=== PATIENT | male | born 1955 | race Caucasian/White ===

== ENCOUNTER 2017-07-14 19:44 | Emergency (ER) | payer OTHER, MEDICARE ==
[~2017-07-14] VITALS: Ht 180.3 cm; Wt 144.6 kg
[~2017-07-14 19:44] MED LIST: AUGMENTIN500TAB PO; AUGMENTIN875TAB PO; BENADRYL25 M1 OR; DOXYCYCL HYC100 MG PO; DUONEB IN; EPIPEN0.3 MG IM; GABAPENTIN100 MG PO; GABAPENTIN300 MG PO; GLUCOPHAGE PO; INVOKANA PO; INVOKANA300 MG PO; JANUVIA100 MG PO; LEVEMIR FLEXPEN SC; LEVEMIR SC; LEVEMIR1000 UNITS SC; LIPITOR20 MG PO; LORTAB 7.57.5 MG/TAB PO; LOSARTAN POT25 MG PO; LOSARTAN POT50 MG PO; LYRICA50 MG PO; MEDDOSEPAK PO; NAPROSYN500 MG PO; NAPROXEN500 MG PO; NEBULIZE1; NEXIUM40 M1 PO; NO MEDS; NOVOLOG FLEXPEN SC; NOVOLOG100 IU/1 M SC; PERCOCET 5/325M1 TAB PO; PREDNISONE20 MG OR; PROAIR HFA IN; TORADOL OR; ULTRAM50 M1 PO; ULTRAM50 MG PO; VENTOLIN HF1 IN; VICODIN1 TA1 PO; VOLTAREN1 % EX; steriod cream
[2017-07-14 20:56] LABS: HEMATOCRIT 44.7 % (39.0-50.0); IMMATURE GRANULOCYTES 0.3 % (0.0-1.0); MEAN CORPUSCULAR HGB 28.2 pG CALC (26.0-32.0); MEAN CORPUSCULAR HGB CONC 33.6 g/L CALC (32.0-36.0); NEUT# 5.34 thou/uL (1.82-7.42); RED BLOOD COUNT 5.32 mill/uL (4.70-6.10); RED CELL DISTRI WIDTH 12.5 % (11.5-15.5)
[2017-07-14 21:15] LABS: ALBUMIN 3.9 g/dL (3.2-5.0); ALKALINE PHOSPHATASE 111 u/l (38-126); ANION GAP 16 (6-22 (CALC)); BILIRUBIN, TOTAL 0.6 mg/dL (0.0-1.4); BUN 16 mg/dL (8-23); BUN/CREATININE RATIO 22 (12-20 (CALC)); CALCIUM 9.2 mg/dL (8.4-10.2); CARBON DIOXIDE 27 mmol/l (22-30); CHLORIDE 101 mmol/l (95-108); CREATININE 0.7 mg/dL (0.7-1.3); GFR > 60 ML/MIN (>=60 (CALC)); GFR FOR AFR.AMER. > 60 ML/MIN (>=60 (CALC)); GLUCOSE 231 mg/dL (82-115); POTASSIUM 4.4 mmol/l (3.5-5.1); SGOT/AST 16 u/l (19-48); SGPT/ALT 28 u/l (11-66); SODIUM 139 mmol/l (137-146); TOTAL PROTEIN 6.8 g/dL (6.3-8.2)
[2017-07-14] MEDS ORDERED: AMOX/K CLAV875 M1 PO (21:56)
[2017-07-14] MEDS ORDERED: CIPROFLOXACN500 MG PO (21:56)
[2017-07-14 22:20] VITALS: BP 177/79
== END 2017-07-14 22:20 | disposition home or self-care (01) | DRG 603 ==
LOC: ED 19:44
PROVIDERS: Emergency Medicine
DX: L03.116 Cellulitis of left lower limb (principal); S81.802A Unspecified open wound, left lower leg, initial encounter; M79.605 Pain in left leg; W01.118A Fall on same level from slipping, tripping and stumbling with subsequent striking against other sharp object, initial encounter; Y92.028 Other place in mobile home as the place of occurrence of the external cause

== ENCOUNTER 2018-06-28 12:45 | Emergency (ER) | payer OTHER, MEDICARE ==
[~2018-06-28] VITALS: Ht 180.3 cm; Wt 136.0 kg
[~2018-06-28 12:45] MED LIST changes: +AMOX/K CLAV875 M1 PO; +CIPROFLOXACN500 MG PO
[2018-06-28 14:09] VITALS: BP 134/74
[2018-06-28] MEDS ORDERED: KEFLEX500 M1 PO (14:22)
== END 2018-06-28 14:29 | disposition home or self-care (01) | DRG 605 ==
LOC: ED 12:45
DX: S60.222A Contusion of left hand, initial encounter (principal); S60.221A Contusion of right hand, initial encounter; I10 Essential (primary) hypertension; E78.5 Hyperlipidemia, unspecified; E11.9 Type 2 diabetes mellitus without complications; M79.7 Fibromyalgia; M19.90 Unspecified osteoarthritis, unspecified site; J45.909 Unspecified asthma, uncomplicated; W31.89XA Contact with other specified machinery, initial encounter; Y93.89 Activity, other specified; Y92.007 Garden or yard of unspecified non-institutional (private) residence as the place of occurrence of the external cause

== ENCOUNTER 2020-05-22 10:04 | Emergency (ER) | payer OTHER, MEDICARE ==
[~2020-05-22] VITALS: Ht 180.3 cm; Wt 152.3 kg
[~2020-05-22 10:04] MED LIST changes: +KEFLEX500 M1 PO
[2020-05-22 10:38] LABS: HEMOGLOBIN 15.1 g/dl (14.0-18.0); IMMATURE GRANULOCYTES 0.3 % (0.0-5.0); MEAN CELL VOLUME 82.2 fL CALC (80.0-100.0); MEAN CORPUSCULAR HGB 25.9 pG CALC (26.0-32.0); MEAN CORPUSCULAR HGB CONC 31.5 g/dL CAL (32.0-36.0); NEUT# 5.76 thou/uL (1.82-7.42); RED BLOOD COUNT 5.84 mill/uL (4.70-6.10); RED CELL DISTRI WIDTH 13.8 % (11.5-15.5)
[2020-05-22] MEDS ORDERED: NOVOLIN N100 UNIT/1 (10:48)
[2020-05-22] MEDS ORDERED: NOVOLIN R RELION (10:49)
[2020-05-22] MEDS ORDERED: LIPITOR40 M1 PO (10:50)
[2020-05-22 10:54] LABS: ALBUMIN 4.1 g/dL (3.2-5.0); ALKALINE PHOSPHATASE 124 u/l (38-126); ANION GAP 13 (6-22 (CALC)); BILIRUBIN, TOTAL 0.8 mg/dL (0.0-1.4); BUN 19 mg/dL (8-23); BUN/CREATININE RATIO 21 (12-20 (CALC)); CARBON DIOXIDE 28 mmol/l (22-30); CHLORIDE 100 mmol/l (95-108); CREATININE 0.9 mg/dL (0.7-1.3); GFR > 60 ML/MIN (>=60 (CALC)); GFR FOR AFR.AMER. > 60 ML/MIN (>=60 (CALC)); POTASSIUM 4.7 mmol/l (3.5-5.1); SGOT/AST 20 u/l (19-48); SODIUM 136 mmol/l (137-146); TOTAL PROTEIN 7.1 g/dL (6.3-8.2)
[2020-05-22] MEDS ORDERED: PREDNISONE50 MG PO (11:55)
[2020-05-22] MEDS ORDERED: EPIPEN 2-P0.3 MG/0.3 IM (11:55)
[2020-05-22] MEDS ORDERED: CEPHALEXIN500 M1 PO (13:05)
[2020-05-22 13:21] VITALS: BP 124/93
[2020-05-22] MEDS ORDERED: BENADRYL25 M1 PO (13:22)
== END 2020-05-22 13:23 | disposition left against medical advice (07) | DRG 918 ==
LOC: ED 10:04
PROVIDERS: Family Medicine
DX: T63.461A Toxic effect of venom of wasps, accidental (unintentional), initial encounter (principal); T78.2XXA Anaphylactic shock, unspecified, initial encounter; I10 Essential (primary) hypertension; E11.9 Type 2 diabetes mellitus without complications; J45.909 Unspecified asthma, uncomplicated; Z79.4 Long term (current) use of insulin; Z20.828 Contact with and (suspected) exposure to other viral communicable diseases
CPT/HCPCS: J0171

== ENCOUNTER 2020-12-21 | Emergency (ER) | payer OTHER, MEDICARE ==
[~2020-12-21] MED LIST changes: +BENADRYL25 M1 PO; +CEPHALEXIN500 M1 PO; +EPIPEN 2-P0.3 MG/0.3 IM; +LIPITOR40 M1 PO; +NOVOLIN N100 UNIT/1; +NOVOLIN R RELION; +PREDNISONE50 MG PO
[2020-12-21 12:45] LABS: HEMOGLOBIN 15.6 g/dl (14.0-18.0); IMMATURE GRANULOCYTES 0.5 % (0.0-5.0); MEAN CELL VOLUME 84.5 fL CALC (80.0-100.0); MEAN CORPUSCULAR HGB 27.5 pG CALC (26.0-32.0); MEAN CORPUSCULAR HGB CONC 32.5 g/dL CAL (32.0-36.0); NEUT# 8.45 thou/uL (1.82-7.42); RED BLOOD COUNT 5.68 mill/uL (4.70-6.10); RED CELL DISTRI WIDTH 13.8 % (11.5-15.5)
[2020-12-21 13:02] LABS: ALBUMIN 4.3 g/dL (3.2-5.0); ALKALINE PHOSPHATASE 131 u/l (38-126); ANION GAP 11 (6-22 (CALC)); BILIRUBIN, TOTAL 0.8 mg/dL (0.0-1.4); BUN 16 mg/dL (8-23); BUN/CREATININE RATIO 20 (12-20 (CALC)); CARBON DIOXIDE 31 mmol/l (22-30); CHLORIDE 98 mmol/l (95-108); CREATININE 0.8 mg/dL (0.7-1.3); GFR > 60 ML/MIN (>=60 (CALC)); GFR FOR AFR.AMER. > 60 ML/MIN (>=60 (CALC)); LIPASE 146 u/l (23-300); SGOT/AST 24 u/l (19-48); SODIUM 136 mmol/l (137-146); TOTAL PROTEIN 7.9 g/dL (6.3-8.2)
[2020-12-21 13:04] LABS: ACT PARTIAL THROMBO TIME 25.2 SECONDS (20.0-32.5); PROTHROMBIN TIME 10.6 SECONDS (9.0-12.5)
== END 2020-12-21 14:35 | disposition left against medical advice (07) | DRG 310 ==
DX: I47.1 Supraventricular tachycardia (principal); I10 Essential (primary) hypertension; E78.5 Hyperlipidemia, unspecified; E11.9 Type 2 diabetes mellitus without complications; J45.909 Unspecified asthma, uncomplicated; Z79.4 Long term (current) use of insulin; Z91.19 Patient's noncompliance with other medical treatment and regimen

== ENCOUNTER 2021-04-27 15:17 | Emergency (ER) | payer OTHER, MEDICARE ==
[~2021-04-27] VITALS: Ht 180.3 cm; Wt 159.0 kg
[2021-04-27 16:00] VITALS: BP 148/88
[2021-04-27 16:31] LABS: IMMATURE GRANULOCYTES 0.3 % (0.0-5.0); MEAN CORPUSCULAR HGB 28.2 pG CALC (26.0-32.0); MEAN CORPUSCULAR HGB CONC 32.8 g/dL CAL (32.0-36.0); NEUT# 9.7 thou/uL (1.82-7.42); RED BLOOD COUNT 4.08 mill/uL (4.70-6.10); RED CELL DISTRI WIDTH 12.9 % (11.5-15.5)
[2021-04-27 17:08] LABS: HEMATOCRIT 35.1 % (39.0-50.0); HEMOGLOBIN 11.5 g/dl (14.0-18.0)
[2021-04-27 17:13] LABS: ALBUMIN 3.6 g/dL (3.2-5.0); BILIRUBIN, TOTAL 0.8 mg/dL (0.0-1.4); CREATININE 1.7 mg/dL (0.7-1.3); POTASSIUM 4.4 mmol/l (3.5-5.1); TOTAL PROTEIN 7.1 g/dL (6.3-8.2)
[2021-04-27 17:14] LABS: URINE BILIRUBIN - DIPSTICK NEGATIVE (NEGATIVE); URINE BLOOD DIPSTICK NEGATIVE (NEGATIVE); URINE COLOR YELLOW; URINE GLUCOSE - DIPSTICK NEGATIVE (NEGATIVE); URINE KETONE NEGATIVE (NEGATIVE); URINE LEUK ESTERASE NEGATIVE (NEGATIVE); URINE PROTEIN - DIPSTICK NEGATIVE (NEG-TRACE); URINE SPECIFIC GRAVITY 1.015; URINE UROBILINOGEN - DIPSTICK 0.2 E.U./dL (0.2)
[2021-04-27 17:20] LABS: URINE NITRITE - DIPSTICK NEGATIVE (Negative)
== END 2021-04-27 18:00 | disposition home or self-care (01) | DRG 700 ==
LOC: ED 15:17
PROVIDERS: Emergency Medicine
DX: N28.9 Disorder of kidney and ureter, unspecified (principal); I10 Essential (primary) hypertension; E78.5 Hyperlipidemia, unspecified; E11.9 Type 2 diabetes mellitus without complications; J45.909 Unspecified asthma, uncomplicated; K90.0 Celiac disease; M79.7 Fibromyalgia; M19.90 Unspecified osteoarthritis, unspecified site; Z79.4 Long term (current) use of insulin; Z53.20 Procedure and treatment not carried out because of patient's decision for unspecified reasons

== ENCOUNTER 2021-10-04 12:40 | Emergency (ER) | payer OTHER, MEDICARE ==
[~2021-10-04] VITALS: Ht 180.3 cm; Wt 163.0 kg
[~2021-10-04 12:40] MED LIST changes: +COZAAR50 MG PO; -LIPITOR40 M1 PO; +LIPITOR80 M1 PO
[2021-10-04 13:36] LABS: HEMOGLOBIN 13.1 g/dl (14.0-18.0); IMMATURE GRANULOCYTES 0.4 % (0.0-5.0); MEAN CELL VOLUME 84.6 fL CALC (80.0-100.0); MEAN CORPUSCULAR HGB 26.3 pG CALC (26.0-32.0); NEUT# 20.91 thou/uL (1.82-7.42); RED BLOOD COUNT 4.99 mill/uL (4.70-6.10); RED CELL DISTRI WIDTH 14.7 % (11.5-15.5)
[2021-10-04 13:50] LABS: ALBUMIN 3.6 g/dL (3.2-5.0); CREATININE 2.3 mg/dL (0.7-1.3); POTASSIUM 4.4 mmol/l (3.5-5.1); TOTAL PROTEIN 7.2 g/dL (6.3-8.2)
[2021-10-04 13:51] LABS: BILIRUBIN, TOTAL 1.3 mg/dL (0.0-1.4)
[2021-10-04 13:58] LABS: HEMATOCRIT 42.2 % (39.0-50.0)
[2021-10-04] MEDS ORDERED: VIAGRA50 MG PO (14:40)
[2021-10-04] MEDS ORDERED: TOUJEO SOL300 UNIT/M SC (14:40)
[2021-10-04] MEDS ORDERED: CIALIS5 MG PO (14:41)
[2021-10-04] MEDS ORDERED: METOPROL TAR25 MG PO (14:41)
[2021-10-04] MEDS ORDERED: ELIQUIS5 MG PO (14:42)
[2021-10-04] MEDS ORDERED: CYMBALTA60 MG PO (14:43)
[2021-10-04] MEDS ORDERED: TAMSULOSIN0.4 MG PO (14:50)
[2021-10-04] MEDS ORDERED: HUMALOG KW100 UNIT/M SC (15:16)
[2021-10-04 17:42] LABS: URINE BILIRUBIN - DIPSTICK NEGATIVE (NEGATIVE); URINE BLOOD DIPSTICK LARGE (NEGATIVE); URINE COLOR YELLOW; URINE GLUCOSE - DIPSTICK NEGATIVE (NEGATIVE); URINE KETONE NEGATIVE (NEGATIVE); URINE PROTEIN - DIPSTICK 30 mg/dL (NEG-TRACE); URINE UROBILINOGEN - DIPSTICK 0.2 E.U./dL (0.2)
[2021-10-04 17:45] VITALS: BP 161/89
[2021-10-04 17:45] LABS: URINE LEUK ESTERASE LARGE (NEGATIVE); URINE NITRITE - DIPSTICK NEGATIVE (Negative)
[2021-10-04 17:48] LABS: URINE WBC >100 WBC/hpf (0-5)
[2021-10-04 17:49] LABS: URINE BACTERIA FEW hpf
== END 2021-10-04 19:48 | disposition short-term general hospital (02) | DRG 871 ==
LOC: ED 12:40
PROVIDERS: Family Medicine
PROC: 0T9B70Z Drainage of Bladder with Drainage Device, Via Natural or Artificial Opening (ICD-10-PCS; principal; 2021-10-04)
PROC: 5A09357 Assistance with Respiratory Ventilation, Less than 24 Consecutive Hours, Continuous Positive Airway Pressure (ICD-10-PCS; 2021-10-04)
DX: A41.9 Sepsis, unspecified organism (principal); I21.4 Non-ST elevation (NSTEMI) myocardial infarction; N17.9 Acute kidney failure, unspecified; Z68.43 Body mass index [BMI] 50.0-59.9, adult; R65.20 Severe sepsis without septic shock; I12.9 Hypertensive chronic kidney disease with stage 1 through stage 4 chronic kidney disease, or unspecified chronic kidney disease; E11.22 Type 2 diabetes mellitus with diabetic chronic kidney disease; N18.9 Chronic kidney disease, unspecified; I48.91 Unspecified atrial fibrillation; E78.5 Hyperlipidemia, unspecified; M79.7 Fibromyalgia; J45.909 Unspecified asthma, uncomplicated; E66.9 Obesity, unspecified; K90.0 Celiac disease; Z79.4 Long term (current) use of insulin; Z20.822 Contact with and (suspected) exposure to COVID-19
CPT/HCPCS: J1644; J2060